=== PATIENT | female | born 1940 | race African-American/Black ===

== ENCOUNTER 2016-06-06 08:04 | Day surgery (SDC) | payer MEDICARE, OTHER ==
[~2016-06-06 08:04] MED LIST: BESIFLOXACIN HCL 0.6% OPH SUSP 5 ML BOTTLE OD PRN; CHONDR SU A NA/HYALUR INTRAOC KIT (SURGICARE) ONE; CYCLOPENTOLATE 0.2%/PHENYLEPHRINE 1% OPH SOLN 2 ML OD PRN; EPINEPHRINE INJ/PF 1 MG/1 ML AMPULE ONE; KETOROLAC TROMETHAMINE 0.45% 4 DROP/0.4 ML DROPERETTE OD PRN; LIDOCAINE 1% INJ-PF (10 MG/ML) 30 ML SDV ONE; TETRACAINE HCL 0.5% OPH SOLN 2 ML OD PRN; TROPICAMIDE 1% OPH SOLN 3 ML OD PRN
[2016-06-06] MEDS ORDERED: MIDAZOLAM 2 MG/2 ML INJ ONE (08:32)
== END 2016-06-06 09:29 | disposition other institution (70) ==
LOC: SC 08:04
PROVIDERS: ATTEND Internal Medicine
DX: H25.811 Combined forms of age-related cataract, right eye (principal); Z53.9 Procedure and treatment not carried out, unspecified reason
CPT/HCPCS: J0171; J2250; J3490

== ENCOUNTER 2016-12-25 15:13 | Inpatient (IN) | payer MEDICARE, OTHER ==
[2016-12-25] MEDS ORDERED: GUAIFENESIN SYRP 200 MG/10 ML UDC PO PRN (15:52)
--- NOTE | 2016-12-25 16:26 | RADIOLOGY REPORT (SQ) ---
EXAM DESCRIPTION: CHEST PA/LAT COMPLETED DATE/TIME: 12/25/2016 4:18 pm REASON FOR STUDY: PULMONARY EMBOLISM, HTN COMPARISON: None. EXAM PARAMETERS: NUMBER OF VIEWS: two views TECHNIQUE: Digital Frontal and Lateral radiographic views of the chest acquired. RADIATION DOSE: NA LIMITATIONS: none FINDINGS: LUNGS AND PLEURA: No opacities, masses or pneumothorax. No pleural effusion. No evidence of pulmonary infarct. Chronic interstitial changes. MEDIASTINUM AND HILAR STRUCTURES: No masses or contour abnormalities. HEART AND VASCULAR STRUCTURES: Heart normal size. No evidence for failure. BONES: No acute findings. HARDWARE: None in the chest. OTHER: No other significant finding. IMPRESSION: Chronic interstitial changes with no acute cardiopulmonary disease. TECHNICAL DOCUMENTATION: JOB ID: [id number] [employer]- All Rights Reserved
[2016-12-25 17:05] LABS: ABSOLUTE BASOPHILS # (AUTO) 0.1 10^3/uL (0.0-0.2); ABSOLUTE LYMPHOCYTES (AUTO) 0.8 10^3/uL (0.5-4.7); ABSOLUTE MONOCYTES (AUTO) 0.4 10^3/uL (0.1-1.4); ABSOLUTE NEUT (AUTO) 13.1 10^3/uL (1.7-8.2); BASOPHILS % (AUTO) 0.6 % (0-2); HEMATOCRIT 28.3 % (36.0-47.0); HEMOGLOBIN 8.6 g/dL (12.0-15.5); HGB HCT DIFFERENCE -2.5; LYMPHOCYTES % (AUTO) 5.9 % (13-45); MEAN CORPUSCULAR HEMOGLOBIN 18.1 pg (27.0-33.4); MEAN CORPUSCULAR HGB CONC 30.4 g/dL (32.0-36.0); MONOCYTES % (AUTO) 2.5 % (3-13); RED BLOOD COUNT 4.74 10^6/uL (3.72-5.28); RED CELL DISTRIBUTION WIDTH 22.1 % (11.5-14.0); WHITE BLOOD COUNT 14.4 10^3/uL (4.0-10.5)
[2016-12-25 17:23] LABS: ANISOCYTOSIS 3+; MICROCYTOSIS 3+
[2016-12-25 17:27] LABS: OVALOCYTES 1+; POIKILOCYTOSIS 1+; POLYCHROMASIA 1+; SCHISTOCYTES 1+; TARGET CELLS SLIGHT; TEAR DROP CELLS SLIGHT
[2016-12-25 17:28] LABS: MEAN CORPUSCULAR VOLUME 60 fl (80-97)
[2016-12-25 17:45] LABS: ALANINE AMINOTRANSFERASE 16 U/L (9-52); ALBUMIN 3.4 g/dL (3.5-5.0); ALKALINE PHOSPHATASE 66 U/L (38-126); ANION GAP 15 (5-19); ASPARTATE AMINO TRANSFERASE 13 U/L (14-36); BILIRUBIN,DIRECT 0.4 mg/dL (0.0-0.4); BILIRUBIN,TOTAL 0.7 mg/dL (0.2-1.3); BLOOD UREA NITROGEN 9 mg/dL (7-20); CALCIUM 9.8 mg/dL (8.4-10.2); CARBON DIOXIDE 22 mmol/L (22-30); CHLORIDE 105 mmol/L (98-107); CREATININE RESULT 0.86 mg/dL (0.52-1.25); GLUCOSE 178 mg/dL (75-110); POTASSIUM 3.4 mmol/L (3.6-5.0); SODIUM 141.7 mmol/L (137-145); TOTAL PROTEIN 6.9 g/dL (6.3-8.2)
[2016-12-25] MEDS: CEFEPIME 2 GM/D5W RTU 2 GM/50 ML RTUPB IV SCH (18:04)
--- NOTE | 2016-12-25 18:50 | PDOC H&P ---
History of Present Illness Admission Date/PCP: 12/25/16 15:13 KATHERYN SHENG Patient complains of: Cough with bloody sputum History of Present Illness: JAIRO NEGRON is a 75 year old female patient who presented to the office today for routine follow up for hypertension, hypothyroidism and vitamin D deficiency. Patient reported ongoing coughing with intermittent sputum production with bloody ting. She reported associated heaviness in her chest, more in sternal region and worsen with coughing. She denied any significant fever or chills. She reported compliance with Pradaxa usage for management of her pulmonary embolism. She has history of systemic lupus erythematosus. She denied nausea or vomiting. No abdominal pain. She denied cigarette smoking. Her initial evaluation in the office revealed associated leukocytosis and abnormal chest X ray suggestive of right lower lobe air space disease process. She was advised hospitalization for further evaluation and management Past Medical History Cardiac Medical History: Reports: Hypertension Denies: Myocardial Infarction Pulmonary Medical History: Denies: Asthma Neurological Medical History: Denies: Seizures GI Medical History: Denies: Hepatitis, Hiatal Hernia Psychiatric Medical History: Denies: Depression Hematology: Reports: Anemia Denies: Sickle Cell Disease Past Surgical History Past Surgical History: Denies: Amputation, Mastectomy, Pacemaker Social History Smoking Status: Never Smoker Frequency of Alcohol Use: None Hx Recreational Drug Use: No Hx Prescription Drug Abuse: No Family History Parental Family History Reviewed: Yes Children Family History Reviewed: Yes Sibling(s) Family History Reviewed.: Yes Medication/Allergy Home Medications: Hydralazine HCl 100 mg PO TID #270 tablet 06/27/15 Levothyroxine Sodium [Synthroid 0.075 mg Tablet] 0.075 mg PO DAILY #90 tablet Nitroglycerin [Nitrostat] 0.4 mg SL Q5M PRN #30 tab.subl 06/27/15 Prednisone 5 mg PO BID #180 tablet 06/27/15 Calcium Carbonate/Vitamin D3 [Oyster Shell 500-Vit D3 200 Tb] 1 tab PO DAILY Meclizine HCl 25 mg PO ASDIR PRN 05/30/16 Besifloxacin HCl [Besivance Drops] 1 drop OP TID 06/05/16 Difluprednate [Durezol] 1 drop OP ASDIR PRN 06/05/16 Nepafenac [Ilevro] 1 drop OP ASDIR PRN 06/05/16 Dabigatran Etexilate Mesylate [Pradaxa] 125 mg PO DAILY 11/19/16 Allergies/Adverse Reactions: amlodipine besylate [From Norvasc] Allergy (Verified 11/19/16 14:04) ibuprofen [From Motrin] Allergy (Verified 11/19/16 14:04) lisinopril [Lisinopril] Allergy (Verified 11/19/16 14:04) valsartan [From Diovan] Allergy (Verified 11/19/16 14:04) Review of Systems Constitutional: PRESENT: weakness Eyes: PRESENT: visual disturbances - with use of glasses for correction Ears: ABSENT: hearing changes Nose, Mouth, and Throat: ABSENT: headache(s), mouth pain, sore throat, vertigo Cardiovascular: PRESENT: chest pain - with coughing and in sternal region. ABSENT: dyspnea on exertion, edema, orthropnea, palpitations Respiratory: PRESENT: cough - with occasional sputum production with blood ting , dyspnea, hemoptysis, sputum Gastrointestinal: ABSENT: abdominal pain, constipation, diarrhea, hematemesis, hematochezia, nausea, vomiting Genitourinary: ABSENT: dysuria, hematuria Musculoskeletal: PRESENT: deformity - related to multiple joint involvement with osteoarthritis Integumentary: ABSENT: rash, wounds Neurological: ABSENT: abnormal gait, abnormal speech, confusion, dizziness, focal weakness, syncope Psychiatric: ABSENT: anxiety, depression, homidical ideation, suicidal ideation Endocrine: PRESENT: cold intolerance Hematologic/Lymphatic: ABSENT: easy bleeding, easy bruising, lymphadenopathy Allergic/Immunologic: ABSENT: seasonal rhinorrhea Physical Exam Vital Signs: Temp Pulse Resp BP Pulse Ox 97.6 F 98 16 128/64 H 97 12/25/16 15:45 12/25/16 15:45 12/25/16 15:45 12/25/16 15:45 12/25/16 15:45 Intake & Output 12/24/16 12/25/16 12/26/16 06:59 06:59 06:59 Weight 71.9 kg General appearance: PRESENT: mild distress - with harsh breathing Head exam: PRESENT: atraumatic, normocephalic Eye exam: PRESENT: conjunctiva pink, EOMI, PERRLA. ABSENT: scleral icterus Ear exam: PRESENT: normal external ear exam Mouth exam: PRESENT: moist, tongue midline Throat exam: ABSENT: post pharyngeal erythema, tonsillar erythema, tonsillar exudate, tonsillogmegaly, other Neck exam: PRESENT: full ROM. ABSENT: carotid bruit, JVD, lymphadenopathy, thyromegaly Respiratory exam: PRESENT: crackles - wet, particularly at lung bases, decreased breath sounds - at lung bases, tachypnea Cardiovascular exam: PRESENT: RRR. ABSENT: diastolic murmur, rubs, systolic murmur Vascular exam: PRESENT: normal capillary refill. ABSENT: pallor GI/Abdominal exam: PRESENT: normal bowel sounds, soft. ABSENT: distended, guarding, mass, organolmegaly, rebound, tenderness Rectal exam: PRESENT: deferred Extremities exam: ABSENT: pedal edema Musculoskeletal exam: PRESENT: deformity - related to joint involvement with arthritis Neurological exam: PRESENT: alert, awake, oriented to person, oriented to place , oriented to time, oriented to situation, CN II-XII grossly intact. ABSENT: motor sensory deficit Psychiatric exam: PRESENT: appropriate affect, normal mood. ABSENT: homicidal ideation, suicidal ideation Skin exam: PRESENT: dry, intact, warm. ABSENT: cyanosis, rash Results Laboratory Results: 12/25/16 16:55 12/25/16 16:55 12/25/16 12/25/16 16:55 16:55 WBC 14.4 H RBC 4.74 Hgb 8.6 L Hct 28.3 L MCV 60 L MCH 18.1 L MCHC 30.4 L RDW 22.1 H Plt Count 542 H Seg Neutrophils % 91.0 H Lymphocytes % 5.9 L Monocytes % 2.5 L Eosinophils % 0.0 Basophils % 0.6 Absolute Neutrophils 13.1 H Absolute Lymphocytes 0.8 Absolute Monocytes 0.4 Absolute Eosinophils 0.0 Absolute Basophils 0.1 Sodium 141.7 Potassium 3.4 L Chloride 105 Carbon Dioxide 22 Anion Gap 15 BUN 9 Creatinine 0.86 Est GFR ( Amer) > 60 Est GFR (Non-Af Amer) > 60 Glucose 178 H Calcium 9.8 Total Bilirubin 0.7 AST 13 L ALT 16 Alkaline Phosphatase 66 Total Protein 6.9 Albumin 3.4 L Impressions: Chest X-Ray 12/25/16 00:00 IMPRESSION: Chronic interstitial changes with no acute cardiopulmonary disease. Assessment & Plan - Diagnosis (1) Right lower lobe pneumonia Qualifiers: Pneumonia type: due to unspecified organism Qualified Code(s): J18.1 - Lobar pneumonia, unspecified organism Is this a current diagnosis for this admission?: Yes Plan: See admitting attending physician orders. (2) Iron deficiency anemia Qualifiers: Iron deficiency anemia type: unspecified iron deficiency Qualified Code(s) : D50.9 - Iron deficiency anemia, unspecified Is this a current diagnosis for this admission?: Yes Plan: See admitting attending physician orders. (3) Pulmonary embolism Qualifiers: Chronicity: unspecified Acute cor pulmonale presence: without acute cor pulmonale Is this a current diagnosis for this admission?: Yes Plan: See admitting attending physician orders. (4) HTN (hypertension) Qualifiers: Hypertension type: essential hypertension Qualified Code(s): I10 - Essential (primary) hypertension Is this a current diagnosis for this admission?: Yes Plan: See admitting attending physician orders. (5) Hypothyroidism Qualifiers: Hypothyroidism type: unspecified Qualified Code(s): E03.9 - Hypothyroidism , unspecified Is this a current diagnosis for this admission?: Yes Plan: See admitting attending physician orders. (6) SLE (systemic lupus erythematosus) Qualifiers: Systemic lupus erythematosus type: unspecified Systemic lupus erythematosus organ involvement: unspecified Qualified Code(s): M32.9 - Systemic lupus erythematosus, unspecified Is this a current diagnosis for this admission?: Yes Plan: See admitting attending physician orders. (7) Vitamin D deficiency Is this a current diagnosis for this admission?: Yes Plan: See admitting attending physician orders. - Time Time Spent: Greater than 70 Minutes - more than 50% spent in care coordination and transfer to hospital and re-evaluation in the hospital. Medications reviewed and adjusted accordingly: Yes Anticipated discharge: Home with Homehealth Within: Other - Inpatient Certification Based on my medical assessment, after consideration of the patient's comorbidities, presenting symptoms, or acuity I expect that the services needed warrant INPATIENT care.: Yes I certify that my determination is in accordance with my understanding of Medicare's requirements for reasonable and necessary INPATIENT services [42 CFR 412.3e].: Yes Medical Necessity: Need Close Monitoring Due to Risk of Patient Decompensation, Need For IV Fluids, Need For Continuous Telemetry Monitoring, Need for IV Antibiotics, Risk of Complication if Not Cared For in Hospital Post Hospital Care: D/C Homemaker Companion Documentation - Plan Summary Plan Summary: See admitting attending physician orders.
[2016-12-25] MEDS: POTASSIUM CHLORIDE 10 MEQ TABLET.SA PO SCH ×2 (20:20→23:43)
[2016-12-25] MEDS: LEVOFLOXACIN 750 MG/D5W RTU 750 MG/150 ML RTUPB IV SCH (21:06)
[2016-12-26] MEDS ORDERED: NITROGLYCERIN 0.4 MG/TAB 25 TAB/BOTTLE SL PRN (05:19)
[2016-12-26] MEDS ORDERED: MECLIZINE HCL 25 MG TABLET PO PRN (05:19)
[2016-12-26] MEDS: CEFEPIME 2 GM/D5W RTU 2 GM/50 ML RTUPB IV SCH ×2 (05:25→17:10)
[2016-12-26] MEDS ORDERED: CLONIDINE HCL 0.1 MG TABLET PO ONE (05:45)
[2016-12-26] MEDS ORDERED: CLONIDINE HCL 0.1 MG TABLET PO PRN (05:45)
[2016-12-26] MEDS ORDERED: (PENDING PHARMACY ID) (Diclofenac Sodium [Voltaren] 4 GM) TOP SCH (06:00)
[2016-12-26] MEDS: MULTIVITAMIN TABLET PO SCH (09:44)
[2016-12-26] MEDS: FERROUS SULFATE 325 MG TABLET PO SCH (09:44)
[2016-12-26] MEDS: LANSOPRAZOLE 30 MG TAB.RAP.DR PO SCH (09:45)
[2016-12-26] MEDS: LEVOTHYROXINE SODIUM 0.075 MG TABLET PO SCH (09:45)
[2016-12-26] MEDS: FLUTICASONE NASAL SPRAY 50 MCG/SPRY 120 SPRAY/16 GM NASL SCH (09:46)
[2016-12-26] MEDS: BESIFLOXACIN HCL 0.6% OPH SUSP 5 ML BOTTLE OU SCH (09:47)
[2016-12-26] MEDS: MEGESTROL ACETATE SUSP 400 MG/10 ML UDCUP PO SCH (09:48)
[2016-12-26] MEDS: ENOXAPARIN SODIUM INJ 40 MG/0.4 ML DISP.SYRIN SUBCUT SCH (09:49)
[2016-12-26] MEDS ORDERED: LEVOFLOXACIN 750 MG/D5W RTU 750 MG/150 ML RTUPB IV SCH (10:00)
[2016-12-26] MEDS ORDERED: FAMOTIDINE 20 MG TABLET PO SCH (10:00)
[2016-12-26] MEDS ORDERED: (PENDING PHARMACY ID) (Pantoprazole Sodium [Protonix] 20 MG) PO SCH (10:00)
[2016-12-26] MEDS ORDERED: (PENDING PHARMACY ID) (Ranitidine Hcl [Zantac 150 Mg Tablet] 150 MG) PO SCH (10:00)
[2016-12-26] MEDS ORDERED: LANSOPRAZOLE 30 MG TAB.RAP.DR PO SCH (10:00)
[2016-12-26] MEDS ORDERED: (PENDING PHARMACY ID) (Azilsartan Medoxomil [Edarbi] 80 MG) PO SCH ×2 (10:00→13:00)
[2016-12-26] MEDS ORDERED: DIFLUPREDNATE OU SCH (10:00)
[2016-12-26] MEDS ORDERED: NEPAFENAC OU SCH (10:00)
[2016-12-26] MEDS ORDERED: LEVOTHYROXINE SODIUM 0.075 MG TABLET PO SCH (10:00)
[2016-12-26 10:15] LABS: PATH REVIEW PATHOLOGIST REVIEWED
[2016-12-26] MEDS ORDERED: HYDRALAZINE HCL 50 MG TABLET PO ONE (10:30)
[2016-12-26] MEDS: HYDRALAZINE HCL 50 MG TABLET PO SCH (17:10)
--- NOTE | 2016-12-26 18:51 | PDOC PROGRESS REPORT ---
Subjective Progress Note for:: 12/26/16 Subjective:: No chest pain or difficulty with breathing. Less active. Watery eye discharge and itching. Surrounding puffiness. No nausea or vomiting. No abdominal pain. Blood pressure is fairly controlled on Hydralazine therapy. Her Aroldoarbi is off formulary in the hospital. Spouse will bring patient supply. Physical Exam Vital Signs: Temp Pulse Resp BP Pulse Ox 98.7 F 86 19 143/85 H 93 12/26/16 15:48 12/26/16 15:48 12/26/16 15:48 12/26/16 15:48 12/26/16 15:48 Intake & Output 12/25/16 12/26/16 12/27/16 06:59 06:59 06:59 Intake Total 1437 1518 Balance 1437 1518 Weight 76 kg 76 kg General appearance: PRESENT: no acute distress, cooperative Head exam: PRESENT: atraumatic, normocephalic Eye exam: PRESENT: conjunctival injection - minimal, periorbital swelling. ABSENT: conjunctiva pink, conjunctiva pale, EOMI, nystagmus, PERRLA, scleral icterus, other Mouth exam: PRESENT: moist Teeth exam: PRESENT: edentulous - dentures in use Respiratory exam: PRESENT: clear to auscultation aditya, decreased breath sounds - at lung bases Cardiovascular exam: PRESENT: RRR. ABSENT: diastolic murmur, rubs, systolic murmur GI/Abdominal exam: PRESENT: normal bowel sounds, soft. ABSENT: distended, guarding, mass, organolmegaly, rebound, tenderness Extremities exam: ABSENT: pedal edema Musculoskeletal exam: PRESENT: deformity - related to multiple joints involvement with arthritis, normal inspection Neurological exam: PRESENT: alert, awake, oriented to person, oriented to place , oriented to time, oriented to situation, CN II-XII grossly intact. ABSENT: motor sensory deficit Psychiatric exam: PRESENT: appropriate affect, normal mood. ABSENT: homicidal ideation, suicidal ideation Skin exam: PRESENT: dry, intact, warm. ABSENT: cyanosis, rash Results Laboratory Results: 12/25/16 16:55 12/25/16 16:55 12/25/16 12/25/16 16:55 16:55 Magnesium 1.7 Iron < 10.1 L TIBC 290 % Saturation UNABLE TO CALCULATE Ferritin 51.30 Vitamin B12 604.0 Folate 15.10 Impressions: Chest X-Ray 12/25/16 00:00 IMPRESSION: Chronic interstitial changes with no acute cardiopulmonary disease. Assessment & Plan - Diagnosis (1) Right lower lobe pneumonia Qualifiers: Pneumonia type: due to unspecified organism Qualified Code(s): J18.1 - Lobar pneumonia, unspecified organism Is this a current diagnosis for this admission?: Yes (2) Iron deficiency anemia Qualifiers: Iron deficiency anemia type: unspecified iron deficiency Qualified Code(s) : D50.9 - Iron deficiency anemia, unspecified Is this a current diagnosis for this admission?: Yes (3) Pulmonary embolism Qualifiers: Chronicity: unspecified Acute cor pulmonale presence: without acute cor pulmonale Is this a current diagnosis for this admission?: Yes (4) HTN (hypertension) Qualifiers: Hypertension type: essential hypertension Qualified Code(s): I10 - Essential (primary) hypertension Is this a current diagnosis for this admission?: Yes (5) Hypothyroidism Qualifiers: Hypothyroidism type: unspecified Qualified Code(s): E03.9 - Hypothyroidism , unspecified Is this a current diagnosis for this admission?: Yes (6) SLE (systemic lupus erythematosus) Qualifiers: Systemic lupus erythematosus type: unspecified Systemic lupus erythematosus organ involvement: unspecified Qualified Code(s): M32.9 - Systemic lupus erythematosus, unspecified Is this a current diagnosis for this admission?: Yes (7) Vitamin D deficiency Is this a current diagnosis for this admission?: Yes - Time Time Spent with patient: 25-34 minutes Medications reviewed and adjusted accordingly: Yes Anticipated discharge: Home with Homehealth - Inpatient Certification Based on my medical assessment, after consideration of the patient's comorbidities, presenting symptoms, or acuity I expect that the services needed warrant INPATIENT care.: Yes I certify that my determination is in accordance with my understanding of Medicare's requirements for reasonable and necessary INPATIENT services [42 CFR 412.3e].: Yes Medical Necessity: Need Close Monitoring Due to Risk of Patient Decompensation, Need For IV Fluids, Need For Continuous Telemetry Monitoring, Need for IV Antibiotics, Risk of Complication if Not Cared For in Hospital Post Hospital Care: D/C Court Clerk Documentation - Plan Summary Plan Summary: Continue IV Levofloxain and Cefepime coverage. Follow up on culture findings. Start on Ferrous sulfate 325mg with vitamin C 500 mg p.o q pm with dinner. Obtain CMP, CBC with diff in AM.
[2016-12-26] MEDS ORDERED: OLOPATADINE HCL 0.1% OPH SOLN 5 ML OU ONE (20:00)
[2016-12-26] MEDS: LEVOFLOXACIN 750 MG/D5W RTU 750 MG/150 ML RTUPB IV SCH (21:54)
[2016-12-26] MEDS: FAMOTIDINE 20 MG TABLET PO SCH (21:55)
[2016-12-27] MEDS: HYDRALAZINE HCL 50 MG TABLET PO SCH ×3 (01:13→18:29)
[2016-12-27] MEDS: ACETAMINOPHEN 325 MG TABLET PO PRN (04:30)
[2016-12-27] MEDS: NORMAL SALINE 1000 ML 1,000 ML IV PRN (04:36)
[2016-12-27] MEDS: CEFEPIME 2 GM/D5W RTU 2 GM/50 ML RTUPB IV SCH ×2 (05:55→18:29)
[2016-12-27 06:14] LABS: PROTHROMBIN TIME 15.5 SEC (11.4-15.4)
[2016-12-27 06:15] LABS: PARTIAL THROMBOPLASTIN TIME 31.5 SEC (23.5-35.8)
[2016-12-27 06:32] LABS: ALANINE AMINOTRANSFERASE 17 U/L (9-52); ALBUMIN 2.8 g/dL (3.5-5.0); ALKALINE PHOSPHATASE 55 U/L (38-126); ANION GAP 9 (5-19); ASPARTATE AMINO TRANSFERASE 13 U/L (14-36); BILIRUBIN,DIRECT 0.3 mg/dL (0.0-0.4); BILIRUBIN,TOTAL 0.9 mg/dL (0.2-1.3); BLOOD UREA NITROGEN 12 mg/dL (7-20); CALCIUM 9.5 mg/dL (8.4-10.2); CARBON DIOXIDE 23 mmol/L (22-30); CHLORIDE 107 mmol/L (98-107); CREATININE RESULT 0.98 mg/dL (0.52-1.25); GLUCOSE 86 mg/dL (75-110); POTASSIUM 4.1 mmol/L (3.6-5.0); SODIUM 139.4 mmol/L (137-145); TOTAL PROTEIN 5.9 g/dL (6.3-8.2)
[2016-12-27 06:37] LABS: ABSOLUTE BASOPHILS # (AUTO) 0.1 10^3/uL (0.0-0.2); ABSOLUTE EOSINOPHILS # (AUTO) 0.4 10^3/uL (0.0-0.6); ABSOLUTE LYMPHOCYTES (AUTO) 2.6 10^3/uL (0.5-4.7); ABSOLUTE MONOCYTES (AUTO) 0.9 10^3/uL (0.1-1.4); ABSOLUTE NEUT (AUTO) 9.9 10^3/uL (1.7-8.2); EOSINOPHILS % (AUTO) 3.1 % (0-6); LYMPHOCYTES % (AUTO) 18.5 % (13-45); MEAN CORPUSCULAR HEMOGLOBIN 18.6 pg (27.0-33.4); MEAN CORPUSCULAR VOLUME 58 fl (80-97); MONOCYTES % (AUTO) 6.4 % (3-13); RED BLOOD COUNT 4.31 10^6/uL (3.72-5.28); RED CELL DISTRIBUTION WIDTH 22.1 % (11.5-14.0)
[2016-12-27 06:41] LABS: ANISOCYTOSIS 2+; HYPOCHROMASIA 2+; MICROCYTOSIS 3+; OVALOCYTES 1+; POIKILOCYTOSIS 1+; POLYCHROMASIA SLIGHT; ROULEAUX SLIGHT; SCHISTOCYTES SLIGHT; TARGET CELLS SLIGHT
[2016-12-27 06:42] LABS: TEAR DROP CELLS SLIGHT
[2016-12-27] MEDS: MEGESTROL ACETATE SUSP 400 MG/10 ML UDCUP PO SCH (09:33)
[2016-12-27] MEDS: OLOPATADINE HCL 0.1% OPH SOLN 5 ML OU SCH (09:34)
[2016-12-27] MEDS: ENOXAPARIN SODIUM INJ 40 MG/0.4 ML DISP.SYRIN SUBCUT SCH (09:42)
[2016-12-27] MEDS: FERROUS SULFATE 325 MG TABLET PO SCH (09:43)
[2016-12-27] MEDS: MULTIVITAMIN TABLET PO SCH (09:43)
[2016-12-27] MEDS: LANSOPRAZOLE 30 MG TAB.RAP.DR PO SCH (09:43)
[2016-12-27] MEDS: LEVOTHYROXINE SODIUM 0.075 MG TABLET PO SCH (09:43)
[2016-12-27] MEDS: FLUTICASONE NASAL SPRAY 50 MCG/SPRY 120 SPRAY/16 GM NASL SCH (09:43)
[2016-12-27] MEDS: BESIFLOXACIN HCL 0.6% OPH SUSP 5 ML BOTTLE OU SCH (09:45)
--- NOTE | 2016-12-27 16:15 | PDOC PROGRESS REPORT ---
Subjective Progress Note for:: 12/27/16 Subjective:: Patient reported that she feeling "terrible". No chest pain or difficulty with breathing. Her watery eye discharge and itching is much better since use of Patadol ophthalmic solution. No nausea, vomiting, or abdominal pain. Blood pressure remain fairly controlled patient has not been taking Edarbi for several months due to making her feel funny. Physical Exam Vital Signs: Temp Pulse Resp BP Pulse Ox 99.3 F 89 20 113/53 L 94 12/27/16 11:24 12/27/16 14:00 12/27/16 11:24 12/27/16 11:24 12/27/16 11:24 Intake & Output 12/26/16 12/27/16 12/28/16 06:59 06:59 06:59 Intake Total 1437 2593 218 Balance 1437 2593 218 Weight 76 kg 74.3 kg Physical Exam: General appearance: PRESENT: no acute distress, cooperative Head exam: PRESENT: atraumatic, normocephalic Eye exam: PRESENT: improving conjunctival injection - minimal, periorbital swelling. ABSENT: conjunctiva pink, conjunctiva pale, EOMI, nystagmus, PERRLA, scleral icterus, other Mouth exam: PRESENT: moist Teeth exam: PRESENT: edentulous - dentures in use Respiratory exam: PRESENT: clear to auscultation aditya, decreased breath sounds - at lung bases Cardiovascular exam: PRESENT: RRR. ABSENT: diastolic murmur, rubs, systolic murmur GI/Abdominal exam: PRESENT: normal bowel sounds, soft. ABSENT: distended, guarding, mass, organomegaly, rebound, tenderness Extremities exam: ABSENT: pedal edema Musculoskeletal exam: PRESENT: deformity - related to multiple joints involvement with arthritis, normal inspection Neurological exam: PRESENT: alert, awake, oriented to person, oriented to place , oriented to time, oriented to situation, CN II-XII grossly intact. ABSENT: motor sensory deficit Psychiatric exam: PRESENT: appropriate affect, normal mood. ABSENT: homicidal ideation, suicidal ideation Skin exam: PRESENT: dry, intact, warm. ABSENT: cyanosis, rash Results Laboratory Results: 12/27/16 05:59 12/27/16 05:59 12/25/16 12/27/16 12/27/16 16:55 05:59 05:59 WBC 14.0 H RBC 4.31 Hgb 8.0 L Hct 25.0 L MCV 58 L MCH 18.6 L MCHC 32.0 RDW 22.1 H Plt Count 444 Seg Neutrophils % 71.0 Lymphocytes % 18.5 Monocytes % 6.4 Eosinophils % 3.1 Basophils % 1.0 Absolute Neutrophils 9.9 H Absolute Lymphocytes 2.6 Absolute Monocytes 0.9 Absolute Eosinophils 0.4 Absolute Basophils 0.1 Sodium 139.4 Potassium 4.1 Chloride 107 Carbon Dioxide 23 Anion Gap 9 BUN 12 Creatinine 0.98 Est GFR ( Amer) > 60 Est GFR (Non-Af Amer) 56 L Glucose 86 Calcium 9.5 Transferrin 205 Total Bilirubin 0.9 AST 13 L ALT 17 Alkaline Phosphatase 55 Total Protein 5.9 L Albumin 2.8 L Impressions: Chest X-Ray 12/25/16 00:00 IMPRESSION: Chronic interstitial changes with no acute cardiopulmonary disease. Assessment & Plan - Diagnosis (1) Right lower lobe pneumonia Qualifiers: Pneumonia type: due to unspecified organism Qualified Code(s): J18.1 - Lobar pneumonia, unspecified organism Is this a current diagnosis for this admission?: Yes (2) Iron deficiency anemia Qualifiers: Iron deficiency anemia type: unspecified iron deficiency Qualified Code(s) : D50.9 - Iron deficiency anemia, unspecified Is this a current diagnosis for this admission?: Yes (3) Pulmonary embolism Qualifiers: Chronicity: unspecified Acute cor pulmonale presence: without acute cor pulmonale Is this a current diagnosis for this admission?: Yes (4) HTN (hypertension) Qualifiers: Hypertension type: essential hypertension Qualified Code(s): I10 - Essential (primary) hypertension Is this a current diagnosis for this admission?: Yes (5) Hypothyroidism Qualifiers: Hypothyroidism type: unspecified Qualified Code(s): E03.9 - Hypothyroidism , unspecified Is this a current diagnosis for this admission?: Yes (6) SLE (systemic lupus erythematosus) Qualifiers: Systemic lupus erythematosus type: unspecified Systemic lupus erythematosus organ involvement: unspecified Qualified Code(s): M32.9 - Systemic lupus erythematosus, unspecified Is this a current diagnosis for this admission?: Yes (7) Vitamin D deficiency Is this a current diagnosis for this admission?: Yes - Time Time Spent with patient: 25-34 minutes Medications reviewed and adjusted accordingly: Yes Anticipated discharge: Other Within: Other - Inpatient Certification Based on my medical assessment, after consideration of the patient's comorbidities, presenting symptoms, or acuity I expect that the services needed warrant INPATIENT care.: Yes I certify that my determination is in accordance with my understanding of Medicare's requirements for reasonable and necessary INPATIENT services [42 CFR 412.3e].: Yes Medical Necessity: Need Close Monitoring Due to Risk of Patient Decompensation, Need For IV Fluids, Need for IV Antibiotics, Risk of Complication if Not Cared For in Hospital Post Hospital Care: D/C Stem Roller Operator Documentation - Plan Summary Plan Summary: Remain on IV Cefepime and Levofloxacin coverage. Follow up requested sputum gram stain, culture and sensitivity request. Engage PT evaluation.
[2016-12-27] MEDS: LEVOFLOXACIN 750 MG/D5W RTU 750 MG/150 ML RTUPB IV SCH (22:07)
[2016-12-27] MEDS: FAMOTIDINE 20 MG TABLET PO SCH (22:07)
[2016-12-28] MEDS: HYDRALAZINE HCL 50 MG TABLET PO SCH ×3 (03:04→18:26)
[2016-12-28] MEDS: CEFEPIME 2 GM/D5W RTU 2 GM/50 ML RTUPB IV SCH ×2 (05:57→18:24)
[2016-12-28 06:37] LABS: ABSOLUTE BASOPHILS # (AUTO) 0.1 10^3/uL (0.0-0.2); ABSOLUTE EOSINOPHILS # (AUTO) 0.3 10^3/uL (0.0-0.6); ABSOLUTE LYMPHOCYTES (AUTO) 2.5 10^3/uL (0.5-4.7); ABSOLUTE MONOCYTES (AUTO) 0.7 10^3/uL (0.1-1.4); ABSOLUTE NEUT (AUTO) 8.6 10^3/uL (1.7-8.2); BASOPHILS % (AUTO) 0.8 % (0-2); EOSINOPHILS % (AUTO) 2.7 % (0-6); HEMATOCRIT 23.8 % (36.0-47.0); HGB HCT DIFFERENCE -1.3; LYMPHOCYTES % (AUTO) 20.7 % (13-45); MEAN CORPUSCULAR HEMOGLOBIN 18.5 pg (27.0-33.4); MEAN CORPUSCULAR HGB CONC 31.6 g/dL (32.0-36.0); MEAN CORPUSCULAR VOLUME 59 fl (80-97); MONOCYTES % (AUTO) 5.6 % (3-13); RED BLOOD COUNT 4.06 10^6/uL (3.72-5.28); RED CELL DISTRIBUTION WIDTH 21.4 % (11.5-14.0); SEGMENTED NEUTROPHILS % (AUTO) 70.2 % (42-78); WHITE BLOOD COUNT 12.2 10^3/uL (4.0-10.5)
[2016-12-28 07:04] LABS: ANISOCYTOSIS 3+; OVALOCYTES SLIGHT; POIKILOCYTOSIS SLIGHT; ROULEAUX 1+; TEAR DROP CELLS SLIGHT
[2016-12-28 07:05] LABS: HYPOCHROMASIA 1+; MICROCYTOSIS 4+; POLYCHROMASIA 1+
[2016-12-28 07:08] LABS: HEMOGLOBIN 7.5 g/dL (12.0-15.5)
[2016-12-28] MEDS: LEVOTHYROXINE SODIUM 0.075 MG TABLET PO SCH (09:30)
[2016-12-28] MEDS: LANSOPRAZOLE 30 MG TAB.RAP.DR PO SCH (09:31)
[2016-12-28] MEDS: ENOXAPARIN SODIUM INJ 40 MG/0.4 ML DISP.SYRIN SUBCUT SCH (11:32)
[2016-12-28] MEDS: MULTIVITAMIN TABLET PO SCH (11:33)
[2016-12-28] MEDS: FERROUS SULFATE 325 MG TABLET PO SCH (11:33)
[2016-12-28] MEDS: BESIFLOXACIN HCL 0.6% OPH SUSP 5 ML BOTTLE OU SCH (11:33)
[2016-12-28] MEDS: OLOPATADINE HCL 0.1% OPH SOLN 5 ML OU SCH (11:34)
[2016-12-28] MEDS: MEGESTROL ACETATE SUSP 400 MG/10 ML UDCUP PO SCH (11:34)
[2016-12-28] MEDS: FLUTICASONE NASAL SPRAY 50 MCG/SPRY 120 SPRAY/16 GM NASL SCH (11:36)
[2016-12-28 12:46] LABS: HGB HCT DIFFERENCE -1.8; MEAN CORPUSCULAR VOLUME 58 fl (80-97); RED BLOOD COUNT 4.13 10^6/uL (3.72-5.28); RED CELL DISTRIBUTION WIDTH 21.3 % (11.5-14.0)
[2016-12-28 13:08] LABS: HEMOGLOBIN 7.4 g/dL (12.0-15.5)
--- NOTE | 2016-12-28 15:57 | PDOC PROGRESS REPORT ---
Subjective Progress Note for:: 12/28/16 Subjective:: She was admitted for the management of right lower lobe pneumonia, she was seen by the bedside, she complains of malaise. The hemogram showed hemoglobin 7.2, she does not want blood transfusion at this time she will discuss it with her and get back to us. Physical Exam Vital Signs: Temp Pulse Resp BP Pulse Ox 99.8 F 95 18 115/59 L 91 L 12/28/16 12:19 12/28/16 12:19 12/28/16 12:19 12/28/16 12:19 12/28/16 12:19 Intake & Output 12/27/16 12/28/16 12/29/16 06:59 06:59 06:59 Intake Total 2593 3743 355 Balance 2593 3743 355 Weight 74.3 kg General appearance: PRESENT: mild distress Eye exam: PRESENT: conjunctival injection Respiratory exam: PRESENT: clear to auscultation aditya Cardiovascular exam: PRESENT: +S1, +S2 GI/Abdominal exam: PRESENT: soft Neurological exam: PRESENT: alert, CN II-XII grossly intact Results Laboratory Results: 12/28/16 12:15 12/27/16 05:59 12/28/16 12/28/16 12/28/16 06:17 12:15 12:15 WBC 12.2 H 12.0 H RBC 4.06 4.13 Hgb 7.5 L 7.4 L Hct 23.8 L 24.0 L MCV 59 L 58 L MCH 18.5 L 18.0 L MCHC 31.6 L 31.0 L RDW 21.4 H 21.3 H Plt Count 384 416 Seg Neutrophils % 70.2 Lymphocytes % 20.7 Monocytes % 5.6 Eosinophils % 2.7 Basophils % 0.8 Absolute Neutrophils 8.6 H Absolute Lymphocytes 2.5 Absolute Monocytes 0.7 Absolute Eosinophils 0.3 Absolute Basophils 0.1 Retic Count (auto) 2.62 Absolute Retic 0.108 Impressions: Chest X-Ray 12/25/16 00:00 IMPRESSION: Chronic interstitial changes with no acute cardiopulmonary disease. Assessment & Plan - Diagnosis (1) Iron deficiency anemia Qualifiers: Iron deficiency anemia type: unspecified iron deficiency Qualified Code(s) : D50.9 - Iron deficiency anemia, unspecified Is this a current diagnosis for this admission?: Yes (2) Right lower lobe pneumonia Qualifiers: Pneumonia type: due to unspecified organism Qualified Code(s): J18.1 - Lobar pneumonia, unspecified organism Is this a current diagnosis for this admission?: Yes Plan: She will continue the IV antibiotic (3) HTN (hypertension) Qualifiers: Hypertension type: essential hypertension Qualified Code(s): I10 - Essential (primary) hypertension Is this a current diagnosis for this admission?: Yes (4) Pulmonary embolism Qualifiers: Chronicity: unspecified Acute cor pulmonale presence: without acute cor pulmonale Is this a current diagnosis for this admission?: Yes (5) Hypothyroidism Qualifiers: Hypothyroidism type: unspecified Qualified Code(s): E03.9 - Hypothyroidism , unspecified Is this a current diagnosis for this admission?: Yes
[2016-12-28 16:05] LABS: FOLATE > 20.00 ng/mL (>2.76)
[2016-12-28] MEDS: NORMAL SALINE 1000 ML 1,000 ML IV PRN (18:24)
[2016-12-28] MEDS: ACETAMINOPHEN 325 MG TABLET PO PRN (20:23)
[2016-12-28] MEDS: FAMOTIDINE 20 MG TABLET PO SCH (21:48)
[2016-12-28] MEDS: LEVOFLOXACIN 750 MG/D5W RTU 750 MG/150 ML RTUPB IV SCH (21:48)
[2016-12-29] MEDS: HYDRALAZINE HCL 50 MG TABLET PO SCH ×3 (01:34→18:13)
[2016-12-29] MEDS: ACETAMINOPHEN 325 MG TABLET PO PRN ×3 (03:15→21:49)
[2016-12-29] MEDS: CEFEPIME 2 GM/D5W RTU 2 GM/50 ML RTUPB IV SCH ×2 (05:39→18:10)
[2016-12-29] MEDS: LANSOPRAZOLE 30 MG TAB.RAP.DR PO SCH (08:34)
[2016-12-29] MEDS: LEVOTHYROXINE SODIUM 0.075 MG TABLET PO SCH (08:34)
[2016-12-29 11:27] LABS: HEMATOCRIT 29.4 % (36.0-47.0); HGB HCT DIFFERENCE -0.9; MEAN CORPUSCULAR HEMOGLOBIN 20.3 pg (27.0-33.4); MEAN CORPUSCULAR HGB CONC 32.2 g/dL (32.0-36.0); RED BLOOD COUNT 4.65 10^6/uL (3.72-5.28); RED CELL DISTRIBUTION WIDTH 26.6 % (11.5-14.0)
[2016-12-29 11:48] LABS: MEAN CORPUSCULAR VOLUME 63 fl (80-97)
[2016-12-29 11:49] LABS: HEMOGLOBIN 9.5 g/dL (12.0-15.5)
[2016-12-29] MEDS: BESIFLOXACIN HCL 0.6% OPH SUSP 5 ML BOTTLE OU SCH (11:52)
[2016-12-29] MEDS: OLOPATADINE HCL 0.1% OPH SOLN 5 ML OU SCH (11:52)
[2016-12-29] MEDS: FERROUS SULFATE 325 MG TABLET PO SCH (11:53)
[2016-12-29] MEDS: FLUTICASONE NASAL SPRAY 50 MCG/SPRY 120 SPRAY/16 GM NASL SCH (11:54)
[2016-12-29] MEDS: MEGESTROL ACETATE SUSP 400 MG/10 ML UDCUP PO SCH (11:54)
[2016-12-29] MEDS: MULTIVITAMIN TABLET PO SCH (11:54)
[2016-12-29] MEDS: ENOXAPARIN SODIUM INJ 40 MG/0.4 ML DISP.SYRIN SUBCUT SCH (12:32)
--- NOTE | 2016-12-29 13:28 | RADIOLOGY REPORT (SQ) ---
EXAM DESCRIPTION: CHEST SINGLE VIEW COMPLETED DATE/TIME: 12/29/2016 1:17 pm REASON FOR STUDY: Respiratory distress/elevated temp. COMPARISON: 12/25/2016 EXAM PARAMETERS: NUMBER OF VIEWS: One view. TECHNIQUE: Single frontal radiographic view of the chest acquired. RADIATION DOSE: NA LIMITATIONS: None. FINDINGS: LUNGS AND PLEURA: Chronic interstitial changes. No evidence of superimposed pneumonia. MEDIASTINUM AND HILAR STRUCTURES: No masses. Contour normal. HEART AND VASCULAR STRUCTURES: Heart normal in size. Normal vasculature. BONES: No acute findings. HARDWARE: None in the chest. OTHER: No other significant finding. IMPRESSION: NO ACUTE RADIOGRAPHIC FINDING IN THE CHEST. TECHNICAL DOCUMENTATION: JOB ID: [id number]
--- NOTE | 2016-12-29 15:37 | PDOC PROGRESS REPORT ---
Subjective Progress Note for:: 01/05/17 Subjective:: Patient was transfused yesterday with 2 units of packed red blood cells, posttransfusion hemoglobin is 9.8, the chest x-ray that was done today showed near resolution of infiltrates, she did complain of fatigue and overall debility. Physical Exam Vital Signs: Temp Pulse Resp BP Pulse Ox 98.9 F 92 22 H 134/66 H 96 12/29/16 12:57 12/29/16 11:27 12/29/16 11:27 12/29/16 11:27 12/29/16 11:27 Intake & Output 12/28/16 12/29/16 12/30/16 06:59 06:59 06:59 Intake Total 3743 3205 0 Balance 3743 3205 0 General appearance: PRESENT: no acute distress Eye exam: PRESENT: PERRLA Respiratory exam: PRESENT: rhonchi Cardiovascular exam: PRESENT: +S1, +S2 Neurological exam: PRESENT: alert Results Laboratory Results: 12/29/16 10:58 12/27/16 05:59 12/28/16 12/29/16 12:15 10:58 WBC 14.0 H RBC 4.65 Hgb 9.5 L D Hct 29.4 L MCV 63 L D MCH 20.3 L MCHC 32.2 RDW 26.6 H Plt Count 384 Iron < 10.1 L TIBC 235 L % Saturation UNABLE TO CALCULATE Ferritin 73.50 Vitamin B12 461.0 Folate > 20.00 Impressions: Chest X-Ray 12/29/16 00:00 IMPRESSION: NO ACUTE RADIOGRAPHIC FINDING IN THE CHEST. Assessment & Plan - Diagnosis (1) Iron deficiency anemia Qualifiers: Iron deficiency anemia type: unspecified iron deficiency Qualified Code(s) : D50.9 - Iron deficiency anemia, unspecified Is this a current diagnosis for this admission?: Yes (2) Right lower lobe pneumonia Qualifiers: Pneumonia type: due to unspecified organism Qualified Code(s): J18.1 - Lobar pneumonia, unspecified organism Is this a current diagnosis for this admission?: Yes (3) HTN (hypertension) Qualifiers: Hypertension type: essential hypertension Qualified Code(s): I10 - Essential (primary) hypertension Is this a current diagnosis for this admission?: Yes (4) Pulmonary embolism Qualifiers: Chronicity: unspecified Acute cor pulmonale presence: without acute cor pulmonale Is this a current diagnosis for this admission?: Yes (5) Hypothyroidism Qualifiers: Hypothyroidism type: unspecified Qualified Code(s): E03.9 - Hypothyroidism , unspecified Is this a current diagnosis for this admission?: Yes - Plan Summary Plan Summary: She will continue present antibiotic regimen.
[2016-12-29 16:12] LABS: APPEARANCE,URINE SLIGHTLY-CLOUDY; BILIRUBIN,URINE NEGATIVE (NEGATIVE); GLUCOSE, URINE NEGATIVE (NEGATIVE); KETONES,URINE NEGATIVE (NEGATIVE); LEUKOCYTE ESTERASE,URINE MODERATE (NEGATIVE); NITRITE,URINE NEGATIVE (NEGATIVE); PROTEIN,URINE NEGATIVE (NEGATIVE); URINE SPECIFIC GRAVITY 1.011; UROBILINOGEN,URINE NEGATIVE mg/dL (<2.0)
[2016-12-29] MEDS: LEVOFLOXACIN 750 MG/D5W RTU 750 MG/150 ML RTUPB IV SCH (21:50)
[2016-12-29] MEDS: FAMOTIDINE 20 MG TABLET PO SCH (21:50)
[2016-12-30] MEDS: HYDRALAZINE HCL 50 MG TABLET PO SCH ×3 (01:54→18:06)
[2016-12-30] MEDS: CEFEPIME 2 GM/D5W RTU 2 GM/50 ML RTUPB IV SCH ×2 (05:20→18:10)
[2016-12-30] MEDS: LANSOPRAZOLE 30 MG TAB.RAP.DR PO SCH (08:00)
[2016-12-30] MEDS: LEVOTHYROXINE SODIUM 0.075 MG TABLET PO SCH (08:00)
[2016-12-30] MEDS: ACETAMINOPHEN 325 MG TABLET PO PRN ×2 (08:35→21:01)
[2016-12-30] MEDS ORDERED: NEPAFENAC OU SCH (10:00)
[2016-12-30] MEDS ORDERED: DIFLUPREDNATE OU SCH (10:00)
[2016-12-30] MEDS ORDERED: (PENDING PHARMACY ID) (Azilsartan Medoxomil [Edarbi] 80 MG) PO SCH (10:00)
[2016-12-30 11:05] LABS: ABSOLUTE BASOPHILS # (AUTO) 0.1 10^3/uL (0.0-0.2); ABSOLUTE EOSINOPHILS # (AUTO) 0.3 10^3/uL (0.0-0.6); ABSOLUTE LYMPHOCYTES (AUTO) 1.6 10^3/uL (0.5-4.7); ABSOLUTE MONOCYTES (AUTO) 0.7 10^3/uL (0.1-1.4); ABSOLUTE NEUT (AUTO) 9.9 10^3/uL (1.7-8.2); BASOPHILS % (AUTO) 0.6 % (0-2); EOSINOPHILS % (AUTO) 2.8 % (0-6); HEMOGLOBIN 9.2 g/dL (12.0-15.5); HGB HCT DIFFERENCE -1.4; LYMPHOCYTES % (AUTO) 12.5 % (13-45); MEAN CORPUSCULAR HEMOGLOBIN 19.9 pg (27.0-33.4); MEAN CORPUSCULAR HGB CONC 31.7 g/dL (32.0-36.0); MEAN CORPUSCULAR VOLUME 63 fl (80-97); MONOCYTES % (AUTO) 5.6 % (3-13); RED BLOOD COUNT 4.61 10^6/uL (3.72-5.28); RED CELL DISTRIBUTION WIDTH 26.4 % (11.5-14.0); SEGMENTED NEUTROPHILS % (AUTO) 78.5 % (42-78); WHITE BLOOD COUNT 12.6 10^3/uL (4.0-10.5)
[2016-12-30] MEDS: ENOXAPARIN SODIUM INJ 40 MG/0.4 ML DISP.SYRIN SUBCUT SCH (11:05)
[2016-12-30] MEDS: MEGESTROL ACETATE SUSP 400 MG/10 ML UDCUP PO SCH (11:07)
[2016-12-30] MEDS: FERROUS SULFATE 325 MG TABLET PO SCH (11:08)
[2016-12-30] MEDS: MULTIVITAMIN TABLET PO SCH (11:08)
[2016-12-30] MEDS: BESIFLOXACIN HCL 0.6% OPH SUSP 5 ML BOTTLE OU SCH (11:09)
[2016-12-30] MEDS: FLUTICASONE NASAL SPRAY 50 MCG/SPRY 120 SPRAY/16 GM NASL SCH (11:09)
[2016-12-30] MEDS: FLUCONAZOLE 100 MG TABLET PO SCH (11:10)
[2016-12-30] MEDS: OLOPATADINE HCL 0.1% OPH SOLN 5 ML OU SCH (11:10)
[2016-12-30 11:40] LABS: ANISOCYTOSIS 3+; HYPOCHROMASIA SLIGHT; MICROCYTOSIS 3+; OVALOCYTES SLIGHT; POIKILOCYTOSIS SLIGHT; POLYCHROMASIA SLIGHT; TOXIC GRANULATION SLIGHT
[2016-12-30 11:42] LABS: PLATELET CLUMPS PRESENT
[2016-12-30] MEDS ORDERED: (PENDING PHARMACY ID) (Diclofenac Sodium [Voltaren] 4 GM) TOP SCH (12:00)
[2016-12-30] MEDS: NORMAL SALINE 1000 ML 1,000 ML IV PRN (15:17)
--- NOTE | 2016-12-30 18:51 | PDOC PROGRESS REPORT ---
Subjective Progress Note for:: 12/30/16 Subjective:: Patient reported worsening redness to eye and watery discharge. There is associated complain of head pain but denied headache. No fever or chills. She has been compliant with her ophthalmic solution administration. She was transfused 2 units of PRBC since my last evaluation due to Anemia. No chest pain or difficulty with breathing. No nausea, vomiting, or abdominal pain but P.O intake remain poor. Physical Exam Vital Signs: Temp Pulse Resp BP Pulse Ox 98.4 F 88 16 145/77 H 100 12/30/16 15:46 12/30/16 15:46 12/30/16 15:46 12/30/16 15:46 12/30/16 15:46 Intake & Output 12/29/16 12/30/16 12/31/16 06:59 06:59 06:59 Intake Total 3205 2199 218 Balance 3205 2199 218 Physical Exam: General appearance: PRESENT: no acute distress, cooperative Head exam: PRESENT: atraumatic, normocephalic Eye exam: PRESENT: severe bilateral conjunctival injection comparatively worse since last clinical evaluation by myself ABSENT: conjunctiva pink, conjunctiva pale, EOMI, nystagmus, PERRLA, scleral icterus, other Mouth exam: PRESENT: moist Teeth exam: PRESENT: edentulous - dentures in use Respiratory exam: PRESENT: clear to auscultation aditya, decreased breath sounds - at lung bases Cardiovascular exam: PRESENT: RRR. ABSENT: diastolic murmur, rubs, systolic murmur GI/Abdominal exam: PRESENT: normal bowel sounds, soft. ABSENT: distended, guarding, mass, organomegaly, rebound, tenderness Extremities exam: ABSENT: pedal edema Musculoskeletal exam: PRESENT: deformity - related to multiple joints involvement with arthritis, normal inspection Neurological exam: PRESENT: alert, awake, oriented to person, oriented to place , oriented to time, oriented to situation, CN II-XII grossly intact. ABSENT: motor sensory deficit Psychiatric exam: PRESENT: appropriate affect, normal mood. ABSENT: homicidal ideation, suicidal ideation Skin exam: PRESENT: dry, intact, warm. ABSENT: cyanosis, rash Results Laboratory Results: 12/30/16 10:27 12/27/16 05:59 12/28/16 12/28/16 12/30/16 12:15 20:00 10:27 WBC 12.6 H RBC 4.61 Hgb 9.2 L Hct 29.0 L MCV 63 L MCH 19.9 L MCHC 31.7 L RDW 26.4 H Plt Count 373 Seg Neutrophils % 78.5 H Lymphocytes % 12.5 L Monocytes % 5.6 Eosinophils % 2.8 Basophils % 0.6 Absolute Neutrophils 9.9 H Absolute Lymphocytes 1.6 Absolute Monocytes 0.7 Absolute Eosinophils 0.3 Absolute Basophils 0.1 Transferrin 161 L Blood Type A2subB POSITIVE Antibody Screen NEGATIVE 12/25/16 17:55 Blood Blood Culture - Final NO GROWTH IN 5 DAYS 12/25/16 16:55 Blood Blood Culture - Final NO GROWTH IN 5 DAYS 12/28/16 06:00 Sputum Gram Stain - Final 12/28/16 06:00 Sputum Sputum Culture - Final C.albicans/C.dubliniensis Reduced Normal Ayush Impressions: Chest X-Ray 12/29/16 00:00 IMPRESSION: NO ACUTE RADIOGRAPHIC FINDING IN THE CHEST. Assessment & Plan - Diagnosis (1) Right lower lobe pneumonia Qualifiers: Pneumonia type: due to unspecified organism Qualified Code(s): J18.1 - Lobar pneumonia, unspecified organism Is this a current diagnosis for this admission?: Yes (2) Iron deficiency anemia Qualifiers: Iron deficiency anemia type: unspecified iron deficiency Qualified Code(s) : D50.9 - Iron deficiency anemia, unspecified Is this a current diagnosis for this admission?: Yes (3) Pulmonary embolism Qualifiers: Chronicity: unspecified Acute cor pulmonale presence: without acute cor pulmonale Is this a current diagnosis for this admission?: Yes (4) HTN (hypertension) Qualifiers: Hypertension type: essential hypertension Qualified Code(s): I10 - Essential (primary) hypertension Is this a current diagnosis for this admission?: Yes (5) Hypothyroidism Qualifiers: Hypothyroidism type: unspecified Qualified Code(s): E03.9 - Hypothyroidism , unspecified Is this a current diagnosis for this admission?: Yes (6) SLE (systemic lupus erythematosus) Qualifiers: Systemic lupus erythematosus type: unspecified Systemic lupus erythematosus organ involvement: unspecified Qualified Code(s): M32.9 - Systemic lupus erythematosus, unspecified Is this a current diagnosis for this admission?: Yes (7) Vitamin D deficiency Is this a current diagnosis for this admission?: Yes - Time Time Spent with patient: 25-34 minutes Medications reviewed and adjusted accordingly: Yes Anticipated discharge: Home Within: Other - Inpatient Certification Based on my medical assessment, after consideration of the patient's comorbidities, presenting symptoms, or acuity I expect that the services needed warrant INPATIENT care.: Yes I certify that my determination is in accordance with my understanding of Medicare's requirements for reasonable and necessary INPATIENT services [42 CFR 412.3e].: Yes Medical Necessity: Need Close Monitoring Due to Risk of Patient Decompensation, Need For IV Fluids, Need For Continuous Telemetry Monitoring, Need for IV Antibiotics, Risk of Complication if Not Cared For in Hospital 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 I will start her on oral Diflucan 100 mg po daily. Blood pressure has been no growth x 5 days. Her repeat chest X ray is devoid of any air space disease process. I will discontinue IV antibiotic therapy. She will continue on current anti HTN medication management. 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
[2016-12-30] MEDS: FAMOTIDINE 20 MG TABLET PO SCH (21:01)
[2016-12-30] MEDS ORDERED: LEVOFLOXACIN 750 MG TABLET PO SCH (22:00)
[2016-12-31] MEDS: HYDRALAZINE HCL 50 MG TABLET PO SCH ×3 (01:07→17:37)
[2016-12-31] MEDS: NORMAL SALINE 1000 ML 1,000 ML IV PRN (04:56)
[2016-12-31] MEDS: MEGESTROL ACETATE SUSP 400 MG/10 ML UDCUP PO SCH (09:28)
[2016-12-31] MEDS: LEVOTHYROXINE SODIUM 0.075 MG TABLET PO SCH (09:29)
[2016-12-31] MEDS: FLUCONAZOLE 100 MG TABLET PO SCH (09:30)
[2016-12-31] MEDS: OLOPATADINE HCL 0.1% OPH SOLN 5 ML OU SCH (09:30)
[2016-12-31] MEDS: FERROUS SULFATE 325 MG TABLET PO SCH (09:30)
[2016-12-31] MEDS: LANSOPRAZOLE 30 MG TAB.RAP.DR PO SCH (09:30)
[2016-12-31] MEDS: BESIFLOXACIN HCL 0.6% OPH SUSP 5 ML BOTTLE OU SCH (09:31)
[2016-12-31] MEDS: FLUTICASONE NASAL SPRAY 50 MCG/SPRY 120 SPRAY/16 GM NASL SCH (09:31)
[2016-12-31] MEDS: ENOXAPARIN SODIUM INJ 40 MG/0.4 ML DISP.SYRIN SUBCUT SCH (09:31)
[2016-12-31] MEDS: MULTIVITAMIN TABLET PO SCH (09:39)
--- NOTE | 2016-12-31 19:05 | PDOC PROGRESS REPORT ---
Subjective Progress Note for:: 12/31/16 Subjective:: Patient reported persistent bilateral eye redness without any significant discharge. She compliant about some degree of eye pain. She was seen by the filter washer team earlier today with need for further instrumentation to adequately examine the patient. No fever or chills. No chest pain or difficulty with breathing. No nausea, vomiting, or abdominal pain. There is some improvement in her food intake so far today. Physical Exam Vital Signs: Temp Pulse Resp BP Pulse Ox 99.3 F 92 18 117/69 97 12/31/16 15:35 12/31/16 15:35 12/31/16 15:35 12/31/16 15:35 12/31/16 15:35 Intake & Output 12/30/16 12/31/16 01/01/17 06:59 06:59 06:59 Intake Total 2199 2760 650 Balance 2199 2760 650 Weight 75.7 kg Physical Exam: General appearance: PRESENT: no acute distress, cooperative Head exam: PRESENT: atraumatic, normocephalic Eye exam: PRESENT: severe bilateral conjunctival injection comparatively worse since last clinical evaluation by myself ABSENT: conjunctiva pink, conjunctiva pale, EOMI, nystagmus, PERRLA, scleral icterus, other Mouth exam: PRESENT: moist Teeth exam: PRESENT: edentulous - dentures in use Respiratory exam: PRESENT: clear to auscultation aditya, decreased breath sounds - at lung bases Cardiovascular exam: PRESENT: RRR. ABSENT: diastolic murmur, rubs, systolic murmur GI/Abdominal exam: PRESENT: normal bowel sounds, soft. ABSENT: distended, guarding, mass, organomegaly, rebound, tenderness Extremities exam: ABSENT: pedal edema Musculoskeletal exam: PRESENT: deformity - related to multiple joints involvement with arthritis, normal inspection Neurological exam: PRESENT: alert, awake, oriented to person, oriented to place , oriented to time, oriented to situation, CN II-XII grossly intact. ABSENT: motor sensory deficit Psychiatric exam: PRESENT: appropriate affect, normal mood. ABSENT: homicidal ideation, suicidal ideation Skin exam: PRESENT: dry, intact, warm. ABSENT: cyanosis, rash Results Laboratory Results: 12/30/16 10:27 12/27/16 05:59 12/25/16 17:55 Blood Blood Culture - Final NO GROWTH IN 5 DAYS 12/25/16 16:55 Blood Blood Culture - Final NO GROWTH IN 5 DAYS Impressions: Chest X-Ray 12/29/16 00:00 IMPRESSION: NO ACUTE RADIOGRAPHIC FINDING IN THE CHEST. Assessment & Plan - Diagnosis (1) Right lower lobe pneumonia Qualifiers: Pneumonia type: due to unspecified organism Qualified Code(s): J18.1 - Lobar pneumonia, unspecified organism Is this a current diagnosis for this admission?: Yes (2) Iron deficiency anemia Qualifiers: Iron deficiency anemia type: unspecified iron deficiency Qualified Code(s) : D50.9 - Iron deficiency anemia, unspecified Is this a current diagnosis for this admission?: Yes (3) Pulmonary embolism Qualifiers: Chronicity: unspecified Acute cor pulmonale presence: without acute cor pulmonale Is this a current diagnosis for this admission?: Yes (4) HTN (hypertension) Qualifiers: Hypertension type: essential hypertension Qualified Code(s): I10 - Essential (primary) hypertension Is this a current diagnosis for this admission?: Yes (5) Hypothyroidism Qualifiers: Hypothyroidism type: unspecified Qualified Code(s): E03.9 - Hypothyroidism , unspecified Is this a current diagnosis for this admission?: Yes (6) SLE (systemic lupus erythematosus) Qualifiers: Systemic lupus erythematosus type: unspecified Systemic lupus erythematosus organ involvement: unspecified Qualified Code(s): M32.9 - Systemic lupus erythematosus, unspecified Is this a current diagnosis for this admission?: Yes (7) Vitamin D deficiency Is this a current diagnosis for this admission?: Yes - Time Time Spent with patient: 25-34 minutes Medications reviewed and adjusted accordingly: Yes Anticipated discharge: Home Within: Other - Inpatient Certification Based on my medical assessment, after consideration of the patient's comorbidities, presenting symptoms, or acuity I expect that the services needed warrant INPATIENT care.: Yes I certify that my determination is in accordance with my understanding of Medicare's requirements for reasonable and necessary INPATIENT services [42 CFR 412.3e].: Yes Medical Necessity: Need Close Monitoring Due to Risk of Patient Decompensation, Need For IV Fluids, Need For Continuous Telemetry Monitoring, Risk of Complication if Not Cared For in Hospital 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 Follow on filter washer consult recommendations. She is off IV antibiotic therapy. If she continue to improve clinically she will be discharged home tomorrow with plan to follow up with filter washer shayan for further evaluation.
[2016-12-31] MEDS: FAMOTIDINE 20 MG TABLET PO SCH (21:40)
[2016-12-31] MEDS ORDERED: PREDNISOLONE ACETATE 1% OPH SUSP 5 ML OU ONE (23:15)
[2016-12-31] MEDS ORDERED: TOBRAMYCIN SULFATE/DEXAMETH OPH OINTMENT 3.5 GM OU ONE (23:15)
[2017-01-01] MEDS ORDERED: PREDNISOLONE ACETATE 1% OPH SUSP 5 ML ONE (01:16)
[2017-01-01] MEDS ORDERED: TOBRAMYCIN SULFATE/DEXAMETH OPH SUSP 2.5 ML ONE (01:17)
[2017-01-01] MEDS: HYDRALAZINE HCL 50 MG TABLET PO SCH ×2 (01:24→09:30)
[2017-01-01 08:00] VITALS: BP 152/70
[2017-01-01] MEDS: LANSOPRAZOLE 30 MG TAB.RAP.DR PO SCH (08:20)
[2017-01-01] MEDS: LEVOTHYROXINE SODIUM 0.075 MG TABLET PO SCH (08:20)
--- NOTE | 2017-01-01 08:54 | PDOC DISCHARGE SUMMARY ---
General - Admit/Disc Date/PCP Admission Date/Primary Care Provider: 12/25/16 15:13 KATHERYNSANG PATRICIO Discharge Date: 01/01/17 - Discharge Diagnosis (1) Right lower lobe pneumonia Is this a current diagnosis for this admission?: Yes (2) Iron deficiency anemia Is this a current diagnosis for this admission?: Yes (3) Pulmonary embolism Is this a current diagnosis for this admission?: Yes (4) HTN (hypertension) Is this a current diagnosis for this admission?: Yes (5) Hypothyroidism Is this a current diagnosis for this admission?: Yes (6) SLE (systemic lupus erythematosus) Is this a current diagnosis for this admission?: Yes (7) Vitamin D deficiency Is this a current diagnosis for this admission?: Yes - Additional Information Home Medications: Besifloxacin HCl [Besivance 0.6% Oph Susp 5 ml] 2 drop OU DAILY 12/25/16 Dabigatran Etexilate Mesylate [Pradaxa] 150 mg PO Q8 12/25/16 Diclofenac Sodium [Voltaren] 4 gm TOP Q6 12/25/16 Difluprednate [Durezol] 2 drop OU DAILY 12/25/16 Ferrous Sulfate [Ferrousul] 325 mg PO DAILY 12/25/16 Fluticasone Propionate [Flonase Nasal Paden 50 Mcg/Paden 16 gm] 2 spray NASL DAILY 12/25/16 Levothyroxine Sodium [Synthroid 0.075 mg Tablet] 0.075 mg PO DAILY 12/25/16 Meclizine HCl [Antivert 25 mg Tablet] 25 mg PO BIDP PRN 12/25/16 Megestrol Acetate [Megace Criselda 400 mg/10 ml Udcup] 200 mg PO DAILY 12/25/16 Multivitamin [Daily Multiple Vitamin] 1 tab PO DAILY 12/25/16 Nepafenac [Ilevro] 2 drop OU DAILY 12/25/16 Nitroglycerin [Nitrostat] 0.4 mg SL Q5MP PRN 12/25/16 Pantoprazole Sodium [Protonix] 20 mg PO DAILY 12/25/16 Ranitidine HCl [Zantac 150 mg Tablet] 150 mg PO DAILY 12/25/16 Hydralazine HCl [Apresoline 50 mg Tablet] 50 mg PO Q8 12/26/16 Fluconazole [Diflucan 100 mg Tablet] 100 mg PO DAILY #7 tablet 01/01/17 Prednisolone Acetate [Inflamase 1% Oph Susp 5 ml] 1 drop OU QID #1 bottle Tobramycin Sulfate/Dexameth [Tobradex Oph Ointment 3.5 gm] 1 applic OU QHS #1 tube 01/01/17 History of Present Illness History of Present Illness: JAIRO NEGRON is a 75 year old female patient who presented to the office today for routine follow up for hypertension, hypothyroidism and vitamin D deficiency. Patient reported ongoing coughing with intermittent sputum production with bloody ting. She reported associated heaviness in her chest, more in sternal region and worsen with coughing. She denied any significant fever or chills. She reported compliance with Pradaxa usage for management of her pulmonary embolism. She has history of systemic lupus erythematosus. She denied nausea or vomiting. No abdominal pain. She denied cigarette smoking. Her initial evaluation in the office revealed associated leukocytosis and abnormal chest X ray suggestive of right lower lobe air space disease process. She was advised hospitalization for further evaluation and management Hospital Course Hospital Course: Her blood culture x 2 sets were no growth. Sputum culture grew Rebekah species with reduced normal ayush. She had 5 days of antibiotic coverage including Levofloxacin and Cefepime. She has been started on Diflucan 100 mg po daily and she will continue treatment for 7 more days. She was seen by loader operator supervisor with [facility] due to severe conjunctival injection of unknown cause. She remain on all her ophthalmic medication management with addition of Patanol ophthalmic solution for possible allergic conjunctivitis. She was transfused with 2 units of PRBC during this office visit. She will be discharge home today with follow up appoint at the loader operator supervisor office [facility]. She will follow up with me as instructed upon discharge. Physical Exam Vital Signs: Temp Pulse Resp BP Pulse Ox 98.8 F 97 19 152/70 H 98 01/01/17 07:15 01/01/17 07:15 01/01/17 07:15 01/01/17 07:15 01/01/17 07:15 Intake & Output 12/31/16 01/01/17 01/02/17 06:59 06:59 06:59 Intake Total 2760 1726 Output Total 500 Balance 2760 1226 Weight 75.7 kg Physical Exam: General appearance: PRESENT: no acute distress, cooperative Head exam: PRESENT: atraumatic, normocephalic Eye exam: PRESENT: severe bilateral conjunctival injection comparatively worse since last clinical evaluation by myself ABSENT: conjunctiva injection bilaterally with some improvement with left eye, EOMI, nystagmus, PERRLA, scleral icterus, other Mouth exam: PRESENT: moist Teeth exam: PRESENT: edentulous - dentures in use Respiratory exam: PRESENT: clear to auscultation aditya, decreased breath sounds - at lung bases Cardiovascular exam: PRESENT: RRR. ABSENT: diastolic murmur, rubs, systolic murmur GI/Abdominal exam: PRESENT: normal bowel sounds, soft. ABSENT: distended, guarding, mass, organomegaly, rebound, tenderness Extremities exam: ABSENT: pedal edema Musculoskeletal exam: PRESENT: deformity - related to multiple joints involvement with arthritis, normal inspection Neurological exam: PRESENT: alert, awake, oriented to person, oriented to place , oriented to time, oriented to situation, CN II-XII grossly intact. ABSENT: motor sensory deficit Psychiatric exam: PRESENT: appropriate affect, normal mood. ABSENT: homicidal ideation, suicidal ideation Skin exam: PRESENT: dry, intact, warm. ABSENT: cyanosis, rash Results Laboratory Results: 12/30/16 10:27 12/27/16 05:59 Impressions: Chest X-Ray 12/29/16 00:00 IMPRESSION: NO ACUTE RADIOGRAPHIC FINDING IN THE CHEST. Qualifiers PATEINT BEING DISCHARGED WITH ANY OF THE FOLLOWING DIAGNOSIS?: No Plan Discharge Plan: Discharge home today, Follow up in the office as instructed upon discharge with me and at the loader operator supervisor office. Time Spent: Greater than 30 Minutes - I discussed at [facility] with patient and spouse at bedside regarding post discharge care management.
[2017-01-01] MEDS: FLUTICASONE NASAL SPRAY 50 MCG/SPRY 120 SPRAY/16 GM NASL SCH (09:28)
[2017-01-01] MEDS: MULTIVITAMIN TABLET PO SCH (09:29)
[2017-01-01] MEDS: FERROUS SULFATE 325 MG TABLET PO SCH (09:29)
[2017-01-01] MEDS: FLUCONAZOLE 100 MG TABLET PO SCH (09:29)
[2017-01-01] MEDS: MEGESTROL ACETATE SUSP 400 MG/10 ML UDCUP PO SCH (09:30)
[2017-01-01] MEDS: ENOXAPARIN SODIUM INJ 40 MG/0.4 ML DISP.SYRIN SUBCUT SCH (09:32)
[2017-01-01] MEDS ORDERED: PREDNISOLONE ACETATE 1% OPH SUSP 5 ML OU SCH (10:00)
[2017-01-01] MEDS ORDERED: TOBRAMYCIN SULFATE/DEXAMETH OPH OINTMENT 3.5 GM OU SCH (22:00)
== END 2017-01-01 11:08 | disposition home or self-care (01) | DRG 193 ==
LOC: 3S 15:13
PROVIDERS: ADMIT Internal Medicine Geriatric Medicine; ATTEND Internal Medicine Geriatric Medicine
PROC: 30233N1 Transfusion of Nonautologous Red Blood Cells into Peripheral Vein, Percutaneous Approach (ICD-10-PCS; principal; 2016-12-29)
DX: J18.1 Lobar pneumonia, unspecified organism (principal); I26.99 Other pulmonary embolism without acute cor pulmonale; D50.9 Iron deficiency anemia, unspecified; I10 Essential (primary) hypertension; E03.9 Hypothyroidism, unspecified; M32.9 Systemic lupus erythematosus, unspecified; E55.9 Vitamin D deficiency, unspecified; H57.8 Other specified disorders of eye and adnexa; H26.9 Unspecified cataract; H35.349 Macular cyst, hole, or pseudohole, unspecified eye; Z79.899 Other long term (current) drug therapy; Z88.8 Allergy status to other drugs, medicaments and biological substances
CPT/HCPCS: 36415; 36430; 71010; 71020; 80053; 81001; 82607; 82728; 82746; 83540; 83550; 83735; 84466; 85025; 85027; 85045; 85610; 85730; 86850; 86900; 86901; 86920; 86922; 87040; 87070; 87205; J0692; J1650; J1956; J3490; J7030; P9016

== ENCOUNTER 2017-03-25 07:25 | Day surgery (SDC) | payer MEDICARE, OTHER ==
[~2017-03-25 07:25] MED LIST changes: -BESIFLOXACIN HCL 0.6% OPH SUSP 5 ML BOTTLE OD PRN; +BUPIVACAINE HCL 0.75% INJ/PF (7.5 MG/1 ML) 10 ML SDV OD PRN; -CHONDR SU A NA/HYALUR INTRAOC KIT (SURGICARE) ONE; -CYCLOPENTOLATE 0.2%/PHENYLEPHRINE 1% OPH SOLN 2 ML OD PRN; -EPINEPHRINE INJ/PF 1 MG/1 ML AMPULE ONE; -LIDOCAINE 1% INJ-PF (10 MG/ML) 30 ML SDV ONE; +LIDOCAINE 4% INJ/PF (40 MG/ML) 5 ML AMPUL OD PRN; -TETRACAINE HCL 0.5% OPH SOLN 2 ML OD PRN; -TROPICAMIDE 1% OPH SOLN 3 ML OD PRN
[2017-03-25] MEDS: CYCLOPENTOLATE 0.2%/PHENYLEPHRINE 1% OPH SOLN 2 ML OD PRN ×3 (07:55→08:15)
[2017-03-25] MEDS: BESIFLOXACIN HCL 0.6% OPH SUSP 5 ML BOTTLE OD PRN ×3 (07:55→08:57)
[2017-03-25] MEDS: TROPICAMIDE 1% OPH SOLN 3 ML OD PRN ×3 (07:55→08:15)
[2017-03-25] MEDS: TETRACAINE HCL 0.5% OPH SOLN 0.6 ML DROPERETTE OD PRN ×2 (07:56→08:20)
[2017-03-25] MEDS ORDERED: MIDAZOLAM 2 MG/2 ML INJ ONE (08:09)
[2017-03-25] MEDS ORDERED: FENTANYL CITRATE INJ/PF 100 MCG/2 ML AMPUL ONE (08:09)
[2017-03-25] MEDS ORDERED: EPINEPHRINE INJ/PF 1 MG/1 ML AMPULE ONE (08:10)
[2017-03-25] MEDS ORDERED: CHONDR SU A NA/HYALUR INTRAOC KIT (SURGICARE) ONE (08:10)
--- NOTE | 2017-03-25 09:17 | [facility] OPERATIVE REPORT E ---
[facility] Operative Report NAME: JAIRO NEGRON AGE: 76Y DATE OF SURGERY: 03/25/2017 ROOM: PREOPERATIVE DIAGNOSIS: Cataract, right eye. POSTOPERATIVE DIAGNOSIS: Cataract, right eye. PROCEDURE PERFORMED: Phacoemulsification with posterior chamber intraocular lens, right eye. SURGEON: KIERSTEN AREVALO M.D. ANESTHESIA: Topical with MAC. INDICATIONS FOR SURGERY: Cataract removal prior to macular hold surgery, poor vision. Best corrected visual acuity counts fingers. PROCEDURE: The patient was brought to the Operating Room and placed on the operative table. Following tetracaine drops, topical anesthesia was administered. This consisted of instrument wipe pledgets soaked in a solution of 4% Xylocaine mixed with 0.75% Marcaine in a 1:2 ratio. A 2 x 1 cm pledget was placed in the superior fornix. A 1 x 1 cm pledget was placed in the inferior fornix. The eye was patched shut for 5 minutes. The patch was removed. The eye was sterilely prepped and draped in the usual manner. Lid speculum was placed in the eye. The pledgets were removed. 4-0 black silk sutures were placed around the superior and the inferior rectus muscles to be used as traction. A conjunctival peritomy was made at the 10 o'clock position. Hemostasis was obtained with bipolar cautery. A posterior limbal groove was created using a crescent knife and dissected anteriorly towards the cornea. A sharp point blade was used to create a paracentesis site at the 2 o'clock position. A 2.4 mm keratome was used to enter the anterior chamber through the groove. Viscoelastic was injected into the anterior chamber. An anterior capsulotomy was performed using Utrata forceps in a capsulorrhexis fashion. Hydrodissection and hydrodelineation were performed. Phacoemulsification was performed in [id number] technique. A total of 13.03 CDE phaco time was used. Following this, the I/A unit was used to remove residual cortex. Viscoelastic was injected into the capsular bag. Intraocular lens model SN60WF, 20.5 diopters, serial number [id number] was placed in the capsular bag. The I/A unit was used to remove residual viscoelastic. The wound was seen to be watertight under high and low pressure, and no sutures were placed. The intraocular lens was well centered. The pressure was adjusted in the eye to normal pressure. The 4-0 black silk sutures and lid speculum were removed. The eye was shielded after Besivance drops were placed. The patient tolerated the procedure well and was sent to the Recovery Room in good condition. DICTATING PHYSICIAN: KIERSTEN AREVALO M.D. [id number] PHY#: [id number] ID: [id number] JOB#: [id number] ACCT: [id number] cc:KIERSTEN AREVALO M.D. >
--- NOTE | 2017-03-25 09:21 | [facility] DISCHARGE SUMMARY E ---
[facility] Discharge Summary NAME: JAIRO NEGRON AGE: 76Y ADMITTED: 03/25/2017 DISCHARGED: 03/25/2017 HOSPITAL COURSE: The patient is a 76-year-old lady who underwent uneventful cataract extraction with intraocular lens implant, right eye, on 03/25/2017. She will be discharged to home. She is instructed to resume preoperative medications, take Tylenol as needed for discomfort, to keep her eye shielded, to use Besivance and Durezol at 3 p.m. and 8 p.m., and to follow up in my office in 1 day. DICTATING PHYSICIAN: KIERSTEN AREVALO M.D. [id number] PHY#: [id number] ID: [id number] JOB#: [id number] ACCT: [id number] cc:KIERSTEN AREVALO M.D. >
== END 2017-03-25 09:42 | disposition home or self-care (01) ==
LOC: SC 07:25
PROVIDERS: ATTEND Ophthalmology
PROC: 08RJ3JZ Replacement of Right Lens with Synthetic Substitute, Percutaneous Approach (ICD-10-PCS; principal; 2017-03-25 08:30)
DX: H25.813 Combined forms of age-related cataract, bilateral (principal); H15.101 Unspecified episcleritis, right eye; H04.123 Dry eye syndrome of bilateral lacrimal glands; H35.341 Macular cyst, hole, or pseudohole, right eye; L93.2 Other local lupus erythematosus; I10 Essential (primary) hypertension; E03.9 Hypothyroidism, unspecified; M19.90 Unspecified osteoarthritis, unspecified site; Z88.6 Allergy status to analgesic agent; Z79.899 Other long term (current) drug therapy; Z86.711 Personal history of pulmonary embolism; I25.10 Atherosclerotic heart disease of native coronary artery without angina pectoris
CPT/HCPCS: 66984; V2632; J2250; J3490 ×3; J0171; J3010; 142

== ENCOUNTER 2017-04-29 06:56 | Day surgery (SDC) | payer MEDICARE, OTHER ==
[~2017-04-29 06:56] MED LIST changes: -BUPIVACAINE HCL 0.75% INJ/PF (7.5 MG/1 ML) 10 ML SDV OD PRN; +BUPIVACAINE HCL 0.75% INJ/PF (7.5 MG/1 ML) 10 ML SDV OS PRN; +FENTANYL CITRATE INJ/PF 100 MCG/2 ML AMPUL ONE; -KETOROLAC TROMETHAMINE 0.45% 4 DROP/0.4 ML DROPERETTE OD PRN; -LIDOCAINE 4% INJ/PF (40 MG/ML) 5 ML AMPUL OD PRN; +LIDOCAINE 4% INJ/PF (40 MG/ML) 5 ML AMPUL OS PRN; +MIDAZOLAM 2 MG/2 ML INJ ONE
[2017-04-29] MEDS ORDERED: EPINEPHRINE INJ/PF 1 MG/1 ML AMPULE ONE (07:14)
[2017-04-29] MEDS ORDERED: CHONDR SU A NA/HYALUR INTRAOC KIT (SURGICARE) ONE (07:14)
[2017-04-29] MEDS ORDERED: LIDOCAINE 1% INJ-PF (10 MG/ML) 30 ML SDV ONE (07:14)
[2017-04-29] MEDS: TETRACAINE HCL 0.5% OPH SOLN 0.6 ML DROPERETTE OS PRN ×2 (07:17→07:44)
[2017-04-29] MEDS: CYCLOPENTOLATE 0.2%/PHENYLEPHRINE 1% OPH SOLN 2 ML OS PRN ×3 (07:18→07:43)
[2017-04-29] MEDS: TROPICAMIDE 1% OPH SOLN 3 ML OS PRN ×3 (07:18→07:43)
[2017-04-29] MEDS: BESIFLOXACIN HCL 0.6% OPH SUSP 5 ML BOTTLE OS PRN ×4 (07:19→08:31)
--- NOTE | 2017-04-29 08:43 | [facility] DISCHARGE SUMMARY E ---
[facility] Discharge Summary NAME: JAIRO NEGRON AGE: 76Y ADMITTED: 04/29/2017 DISCHARGED: 04/29/2017 PREOPERATIVE DIAGNOSIS: Cataract, left eye. POSTOPERATIVE DIAGNOSIS: Cataract, left eye. HOSPITAL COURSE: The patient is a 76-year-old lady who underwent uneventful cataract extraction with intraocular lens implant, left eye, on 04/29/2017. She will be discharged to home. She was instructed to resume preoperative medications, take Tylenol as needed for discomfort, to keep her eye shielded, to use Besivance, Durezol, and Ilevro at 3 p.m. and 8 p.m., and to followup in my office in 1 day. DICTATING PHYSICIAN: KIERSTEN AREVALO M.D. [id number] PHY#: [id number] ID: [id number] JOB#: [id number] ACCT: [id number] cc:KIERSTEN AREVALO M.D. >
--- NOTE | 2017-04-29 08:43 | [facility] OPERATIVE REPORT E ---
[facility] Operative Report NAME: JAIRO NEGRON AGE: 76Y DATE OF SURGERY: 04/29/2017 ROOM: PREOPERATIVE DIAGNOSIS: Cataract, left eye. POSTOPERATIVE DIAGNOSIS: Cataract, left eye. PROCEDURE PERFORMED: Phacoemulsification with posterior chamber intraocular lens, left eye. SURGEON: Grace Arevalo MD ANESTHESIA: Topical with MAC. INDICATIONS FOR SURGERY: Just cloudy vision and difficulty watching TV. Best corrected visual acuity 20/50. PROCEDURE: The patient was brought to the operating room and placed on the operative table. Following tetracaine drops, topical anesthesia was administered. This consisted of instrument wipe pledgets soaked in a solution of 4% Xylocaine mixed with 0.75% Marcaine in a 1:2 ratio. A 2 x 1 cm pledget was placed in the superior fornix. A 1 x 1 cm pledget was placed in the inferior fornix. The eye was patched shut for 5 minutes. The patch was removed. The eye was sterilely prepped and draped in the usual manner. Lid speculum was placed in the eye. The pledgets were removed. 4-0 black silk sutures were placed around the superior and the inferior rectus muscles to be used as traction. A conjunctival peritomy was made at the 10 o'clock position. Hemostasis was obtained with bipolar cautery. A posterior limbal groove was created using a crescent knife and dissected anteriorly towards the cornea. A sharp point blade was used to create a paracentesis site at the 2 o'clock position. A 2.4 mm keratome was used to enter the anterior chamber through the groove. Viscoelastic was injected into the anterior chamber. An anterior capsulotomy was performed using Utrata forceps in a capsulorrhexis fashion. Hydrodissection and hydrodelineation were performed. Phacoemulsification was performed in cbaagm-anr-tqelpno technique. A total of 7.15 CDE phaco time was used. Following this, the I/A unit was used to remove residual cortex. Viscoelastic was injected into the capsular bag. Intraocular lens model SN60WF, 20.5 diopters, serial number [id number] was placed in the capsular bag. The I/A unit was used to remove residual viscoelastic. The wound was seen to be watertight under high and low pressure, and no sutures were placed. The intraocular lens was well centered. The pressure was adjusted in the eye to normal pressure. The 4-0 black silk sutures and lid speculum were removed. The eye was shielded after Besivance drops were placed. The patient tolerated the procedure well and was sent to the recovery room in good condition. DICTATING PHYSICIAN: GRACE AREVALO M.D. [id number] PHY#: [id number] ID: [id number] JOB#: [id number] ACCT: [id number] cc:GRACE AREVALO M.D. >
== END 2017-04-29 09:25 | disposition home or self-care (01) ==
LOC: SC 06:56
PROVIDERS: ATTEND Ophthalmology
PROC: 08RK3JZ Replacement of Left Lens with Synthetic Substitute, Percutaneous Approach (ICD-10-PCS; principal; 2017-04-29 08:00)
DX: H25.812 Combined forms of age-related cataract, left eye (principal); H35.341 Macular cyst, hole, or pseudohole, right eye; Z96.1 Presence of intraocular lens; I10 Essential (primary) hypertension; K21.9 Gastro-esophageal reflux disease without esophagitis; D64.9 Anemia, unspecified; I20.9 Angina pectoris, unspecified; Z79.899 Other long term (current) drug therapy; Z88.8 Allergy status to other drugs, medicaments and biological substances; Z86.711 Personal history of pulmonary embolism; Z99.81 Dependence on supplemental oxygen
CPT/HCPCS: 66984; V2632; J2250; J3490 ×4; J0171; J3010; 142

== ENCOUNTER → 2017-11-28 | Outpatient (CLI) | payer MEDICARE, OTHER ==
--- NOTE | 2017-11-28 14:58 | RADIOLOGY REPORT (SQ) ---
EXAM DESCRIPTION: BARIUM SWALLOW ESOPHAGUS COMPLETED DATE/TIME: 11/28/2017 10:11 am REASON FOR STUDY: DIFFICULTY SWALLOWING R13.10 DYSPHAGIA, UNSPECIFIED COMPARISON: None. TECHNIQUE: Under fluoroscopic guidance, patient ingested thin barium. Fluoroscopic spot images and r outine radiographic images acquired and stored on PACS. 12 MM BARIUM TABLET GIVEN: Patient unable to swallow tablets. LIMITATIONS: Patient unable to stand, therefore images acquired in supine position. . FLUOROSCOPY TIME: 0.58 minutes 6 images saved to PACS. FINDINGS: NEUROMUSCULAR COORDINATION OF SWALLOW: Normal. No aspiration. ESOPHAGEAL MOTILITY: Mild esophageal dysmotility noted. No esophageal spasm. ESOPHAGEAL MUCOSA: Normal mucosa without masses or ulceration. GASTRO-ESOPHAGEAL JUNCTION: Small hiatal hernia. No gastroesophageal reflux. Mild narrowing at the GE junction. NON-GI TRACT STRUCTURES: No significant finding. OTHER: No other significant finding. IMPRESSION: SMALL HIATAL HERNIA. MILD ESOPHAGEAL DYSMOTILITY. MILD NARROWING AT THE GE JUNCTION. OTHERWISE UNREMARKABLE STUDY. COMMENT: NONE Quality ID [id number]: Final reports for procedures using fluoroscopy that document radiation exposure leandra gerry, or exposure time and number of fluorographic images (if radiation exposure indices are not avail able) TECHNICAL DOCUMENTATION: JOB ID: [id number] [employer]- All Rights Reserved Reading location - IP/workstation name: [email or web address] [id number]
== END ==
LOC: RAD 09:18
PROVIDERS: ATTEND Internal Medicine
DX: I69.391 Dysphagia following cerebral infarction (principal); R13.10 Dysphagia, unspecified
CPT/HCPCS: 74220